=== PATIENT | female | born 1970 | race Caucasian/White ===

== ENCOUNTER 2017-11-22 11:06 | Emergency (ER) | payer MEDICARE, BC ==
[~2017-11-22] VITALS: Ht 172.7 cm; Wt 95.0 kg
[~2017-11-22 11:06] MED LIST: ALPR0.5T10 PO; BACL10TA PO; ESCI10TA54 PO; FLUT16SP26 BOTHNARES; HYDR-565 PO; LORA-835 PO; PANT-47 PO
[2017-11-22] MEDS ORDERED: cloNIDine 0.1 mg tablet PO ONE (12:20)
[2017-11-22] MEDS ORDERED: ketorolac trometh inj. 60 MG/2 ML VIAL IM ONE (12:25)
[2017-11-22] MEDS ORDERED: LORazepam 1 MG tablet PO ONE (12:25)
[2017-11-22] MEDS ORDERED: orphenadrine citrate 60mg/2ml inj. IM ONE (12:25)
[2017-11-22] MEDS ORDERED: KETO10TA2 PO (13:29)
[2017-11-22] MEDS ORDERED: dexamethasone sod phosphate 10mg/ml inj IM STA (13:37)
[2017-11-22 14:06] VITALS: BP 170/81
[2017-11-28] MEDS ORDERED: LORA1TAB PO (10:46)
[2017-11-28] MEDS ORDERED: TRAM50TA2 PO (10:46)
[2017-11-28] MEDS ORDERED: PANT-47 PO (10:49)
== END 2017-11-22 14:07 | disposition home or self-care (01) ==
LOC: ER 11:07
DX: G44.009 Cluster headache syndrome, unspecified, not intractable (principal); G44.209 Tension-type headache, unspecified, not intractable; G89.29 Other chronic pain; F41.9 Anxiety disorder, unspecified; F32.9 Major depressive disorder, single episode, unspecified; Z90.710 Acquired absence of both cervix and uterus; Z88.6 Allergy status to analgesic agent; Z88.8 Allergy status to other drugs, medicaments and biological substances; Z79.899 Other long term (current) drug therapy
CPT/HCPCS: 72040; 96372; 99284; J1100; J1885; J2360

== ENCOUNTER → 2017-11-28 | Day surgery (SDC) | payer MEDICARE, BC ==
[2017-11-24 13:09] LABS: BASOPHILS % (AUTO) 0.2 % (0-1); EOSINOPHILS # (AUTO) 0.1 X10'3 (0-0.9); EOSINOPHILS % (AUTO) 1.3 % (0-6); HEMATOCRIT 39.3 % (35.0-45.0); LYMPHOCYTES % (AUTO) 28.6 % (21-51); MEAN CORPUSCULAR HEMOGLOBIN 28.8 PG (27.0-31.0); MEAN CORPUSCULAR HGB CONC 33.2 % (33.0-36.5); MEAN CORPUSCULAR VOLUME 86.8 FL (78-98); MEAN PLATELET VOLUME 8.9 FL (7.4-10.4); MONOCYTES # (AUTO) 0.6 X10'3 (0-0.9); MONOCYTES % (AUTO) 5.7 % (2-12); NEUTROPHILS # (AUTO) 6.8 X10'3 (1.8-7.7); NEUTROPHILS % (AUTO) 64.2 % (42-75); PLATELET COUNT 211 X10'3 (140-440); RED BLOOD COUNT 4.52 X10'6 (4.20-5.60); RED CELL DISTRIBUTION WIDTH 13.8 % (11.5-14.5); WHITE BLOOD COUNT 10.6 X10'3 (4.5-11.0)
[2017-11-24 13:18] LABS: ANION GAP 5 (8-16); BLOOD UREA NITROGEN 16 MG/DL (7-18); BUN/CREATININE RATIO 17.4 (6.6-38.0); CALCIUM 8.8 MG/DL (8.5-10.1); CHLORIDE 104 MMOL/L (99-107); CREATININE 0.92 MG/DL (0.40-0.90); GLUCOSE 85 MG/DL (70-104); POTASSIUM 3.6 MMOL/L (3.5-5.1); SODIUM 142 MMOL/L (135-145); TOTAL CARBON DIOXIDE 33.3 MMOL/L (24-32); eGFR 65 ML/MIN
[2017-11-24 13:19] LABS: PARTIAL THROMBOPLASTIN TIME 26 SECONDS (22-32); PROTHROMBIN TIME 10.6 SECONDS (9.0-12.0)
[~2017-11-28] VITALS: Ht 172.7 cm; Wt 94.5 kg
[2017-11-28] VITALS (11 sets, daily range): BP systolic 122–149; BP diastolic 69–86
[~2017-11-28] MED LIST changes: +DEC4T PO; +KETO10TA2 PO; +LIDOcaine 1%/PF (10mg/ml) 5ml vial ONE; +LIDOcaine/PRILOcaine 5gm cream TP ONE; +LORA1TAB PO; +LORazepam 0.5 MG tablet PO PRN; +SUMA50TA PO; +TRAM50TA2 PO; +baclofen 10mg tablet PO PRN; +diphenhydrAMINE 25mg capsule PO PRN; +fentaNYL/PF 50MCG/1 ML 2ML syringe ONE; +heparin 1,000unit/ml 10ml vial 10 ML ONE; +iohexol 350MG/ML 100ml bottle IV ONE; +midazolam 2 mg/2 ml injection ONE; +nitroGLYCERIN-Tridil 50MG/D5W 250 ML IV ONE; +normal saline 1000ml 1,000 ML IV SCH; +traMADol 50MG tablet PO ONE; +verapamil 2.5 mg/ml inj IV ONE
== END | disposition home or self-care (01) ==
LOC: SSTAY O 10:08
PROVIDERS: ATTEND Internal Medicine Interventional Cardiology
DX: I20.9 Angina pectoris, unspecified (principal); G89.29 Other chronic pain; E78.5 Hyperlipidemia, unspecified; M19.90 Unspecified osteoarthritis, unspecified site; E78.4 Other hyperlipidemia; Z88.6 Allergy status to analgesic agent; Z88.8 Allergy status to other drugs, medicaments and biological substances; Z98.890 Other specified postprocedural states; Z79.899 Other long term (current) drug therapy
CPT/HCPCS: 36415; 80048; 85025; 85610; 85730; 93005; 93458; 99152; A6257; A6258; A6402; C1769; J1644; J2001; J2250; J3010; J3490; J7030; Q0163; Q9967; A4620

== ENCOUNTER 2018-05-26 08:59 | Emergency (ER) | payer MEDICARE, BC ==
[~2018-05-26] VITALS: Ht 175.3 cm; Wt 96.0 kg
[~2018-05-26 08:59] MED LIST changes: -COLC1TAB2 PO; -dexamethasone sod phosphate 10mg/ml inj IM STA
[2018-05-26 09:10] VITALS: BP 116/65
[2018-05-26] MEDS ORDERED: COLC1TAB2 PO (16:10)
== END 2018-05-26 10:48 | disposition home or self-care (01) ==
LOC: ER 09:00
DX: S62.306A Unspecified fracture of fifth metacarpal bone, right hand, initial encounter for closed fracture (principal); G43.909 Migraine, unspecified, not intractable, without status migrainosus; G89.29 Other chronic pain; Z90.710 Acquired absence of both cervix and uterus; Z98.890 Other specified postprocedural states; Z88.5 Allergy status to narcotic agent; Z88.8 Allergy status to other drugs, medicaments and biological substances; Z79.899 Other long term (current) drug therapy; X50.1XXA Overexertion from prolonged static or awkward postures, initial encounter; Y93.89 Activity, other specified; Y92.89 Other specified places as the place of occurrence of the external cause; Y99.8 Other external cause status
CPT/HCPCS: 29125; 73130; 99284; A6449

== ENCOUNTER → 2018-05-26 | Emergency (ER) | payer MEDICARE, BC ==
[~2018-05-26] VITALS: Ht 175.3 cm; Wt 95.8 kg
[~2018-05-26] MED LIST changes: -ALPR0.5T10 PO; +COLC1TAB2 PO; -DEC4T PO; -FLUT16SP26 BOTHNARES; -HYDR-565 PO; -KETO10TA2 PO; -LIDOcaine 1%/PF (10mg/ml) 5ml vial ONE; -LIDOcaine/PRILOcaine 5gm cream TP ONE; -LORA-835 PO; -LORazepam 0.5 MG tablet PO PRN; +PROP60CA6 PO; -SUMA50TA PO; -baclofen 10mg tablet PO PRN; +dexamethasone sod phosphate 10mg/ml inj IM STA; -diphenhydrAMINE 25mg capsule PO PRN; -fentaNYL/PF 50MCG/1 ML 2ML syringe ONE; -heparin 1,000unit/ml 10ml vial 10 ML ONE; -iohexol 350MG/ML 100ml bottle IV ONE; -midazolam 2 mg/2 ml injection ONE; -nitroGLYCERIN-Tridil 50MG/D5W 250 ML IV ONE; -normal saline 1000ml 1,000 ML IV SCH; -traMADol 50MG tablet PO ONE; -verapamil 2.5 mg/ml inj IV ONE
[2018-05-26 15:30] VITALS: BP 124/68
== END | disposition home or self-care (01) ==
LOC: ER 15:20
DX: M79.641 Pain in right hand (principal); G43.909 Migraine, unspecified, not intractable, without status migrainosus; Z90.710 Acquired absence of both cervix and uterus; Z98.890 Other specified postprocedural states; Z79.899 Other long term (current) drug therapy; Z88.5 Allergy status to narcotic agent
CPT/HCPCS: 96372; 99283; A4565; J1100

== ENCOUNTER 2025-02-08 12:41 | Emergency (ER) | payer MEDICARE, BC ==
[~2025-02-08] VITALS: Ht 172.7 cm; Wt 94.4 kg
[~2025-02-08 12:41] MED LIST changes: +ESCI-8 PO; -ESCI10TA54 PO; +PROB1TAB2 PO; +PROP60CA37 PO; -PROP60CA6 PO
[2025-02-08 12:49] VITALS: BP 116/78; PULSE 80; RESP 18; TEMP 97.7; O2SAT 98
[2025-02-08] MEDS: TETanus/Pertussis (Acell)/Diphther VAC/PF (Tdap-Adult) 0.5ml syringe IMVAC ONE (13:04)
== END 2025-02-08 13:07 | disposition home or self-care (01) ==
LOC: ER 12:42
DX: S61.233A Puncture wound without foreign body of left middle finger without damage to nail, initial encounter (principal); F32.A Depression, unspecified; F41.9 Anxiety disorder, unspecified; Z88.5 Allergy status to narcotic agent; Z90.710 Acquired absence of both cervix and uterus; X58.XXXA Exposure to other specified factors, initial encounter; Y93.89 Activity, other specified; Y92.89 Other specified places as the place of occurrence of the external cause; Y99.8 Other external cause status
CPT/HCPCS: 90715; 99283; G0008; 90471